=== PATIENT | male | born 1955 | race Caucasian/White ===

== ENCOUNTER 2022-08-06 04:50 | Observation (INO) ==
--- NOTE | 2022-07-08 10:27 | PAT Medication Instructions ---
Medication Instructions Date of Service July 08, 2022 Home Medications ascorbic acid (vitamin C) 500 mg tablet (Vitamin C) 500 mg PO QAM aspirin 81 mg capsule 81 mg PO QAM atorvastatin 20 mg tablet 20 mg PO HS cholecalciferol (vitamin D3) 10 mcg (400 unit) chewable tablet (Vitamin D3) 10 mcg PO QAM cyanocobalamin (vitamin B-12) 1,000 mcg tablet,extended release (Vitamin B-12 ER) 1,000 mcg PO QAM insulin aspart U-100 100 unit/mL subcutaneous solution (Novolog U-100 Insulin as part) 1 unit continuous subcutaneous infusion UD losartan 100 mg tablet 100 mg PO QAM omeprazole 40 mg capsule,delayed release 40 mg PO QAM DO NOT take the morning of surgery ascorbic acid (vitamin C) 500 mg tablet (Vitamin C) 500 mg PO QAM cholecalciferol (vitamin D3) 10 mcg (400 unit) chewable tablet (Vitamin D3) 10 mcg PO QAM cyanocobalamin (vitamin B-12) 1,000 mcg tablet,extended release (Vitamin B-12 ER) 1,000 mcg PO QAM losartan 100 mg tablet 100 mg PO QAM Take morning of surgery With a small sip of water, OTHERWISE NOTHING TO EAT OR DRINK AFTER MIDNIGHT: aspirin 81 mg capsule 81 mg PO QAM (continue as normal unless told otherwise by surgeon) omeprazole 40 mg capsule,delayed release 40 mg PO QAM Take evening before surgery atorvastatin 20 mg tablet 20 mg PO HS Insulin Dependent Diabetic Patients Unless told otherwise by prescriber, for insulin pump: set to basal rate. Do not bolus morning of surgery. Other Notes If you have any questions please call us at [phone] or [phone] or [phone] or [phone]
--- NOTE | 2022-07-11 11:04 | Anesthesiology Consultation ---
Date of Service July 11, 2022 Assessment & Plan (1) Encounter for pre-operative examination: - COVID screening: Per assessment on 07/11: No known COVID-19 positive contacts or current COVID-19 related symptoms. Travel screen negative. Patient vaccinated. Patient was Covid positive early 05/2022 (home test). Symptoms at time: cough, fatigue > resolved. Pt did not have formal testing done, therefore Covid test done at [facility] 07/11- result was negative. - Check BSG AM DOS - Outpatient joint assessment: Pt currently scheduled for inpatient pathway. If surgeon requests review for outpatient joint pathway, patient is not recommended candidate for outpatient joint program from anesthesia standpoint. - Pt scheduled to see cardiology prior to surgery. Awaiting cardiology office visit note (Dr. Elmore, appt 07/28). Chart Review Chart Review: Patient seen in Pre Admission Testing Teaching & Discussion Pre-Anesthesia Teaching/Discussion Notes: Instructed NPO after midnight before surgery,except medications with 15 cc of water. Medication instructions provided according to the [facility] guidelines. History Surgery Operation Date: 08/06/22 11:50 Proposed Procedures p Right Total Knee Arthroplasty - Ishmael Garcia MD Height/Weight Height: 5 ft 11 in Weight: 111.2 kg Allergies Allergy/AdvReac Type Severity Reaction Status Date / Time Penicillins Allergy Intermediate Rash Verified 07/07/22 08:12 Medications Home Medications Medication Instructions Recorded Confirmed Last Taken ascorbic acid (vitamin C) 500 mg 500 mg PO QAM 07/30/21 07/07/22 Unknown tablet (Vitamin C) aspirin 81 mg capsule 81 mg PO QAM 07/30/21 07/07/22 Unknown atorvastatin 20 mg tablet 20 mg PO HS 07/30/21 07/07/22 Unknown cholecalciferol (vitamin D3) 10 10 mcg PO QAM 07/30/21 07/07/22 Unknown mcg (400 unit) chewable tablet (Vitamin D3) cyanocobalamin (vitamin B-12) 1,000 mcg PO QAM 07/30/21 07/07/22 Unknown 1,000 mcg tablet,extended release (Vitamin B-12 ER) insulin aspart U-100 100 unit/mL 1 unit continuous subcutaneous 07/30/21 07/07/22 Unknown subcutaneous solution (Novolog infusion UD U-100 Insulin aspart) losartan 100 mg tablet 100 mg PO QAM 07/30/21 07/07/22 Unknown omeprazole 40 mg capsule,delayed 40 mg PO QAM 07/30/21 07/07/22 Unknown release Past Medical History Medical History Diabetes mellitus type 1 + insulin pump GERD (gastroesophageal reflux disease) History of COVID-19 Early 05/2022 (home test), symptoms at time: cough, fatigue > resolved Hx of renal calculi Passed without intervention Hyperlipidemia Hypertension Obesity Exercise / Class Metabolic Activity III < 4 Walking/Shop/Light housework (one FS (no CP, no SOB)) Past Family History Family History Other No family history of adverse response to anesthesia Past Surgical History Surgical History History of cataract surgery R/L History of cholecystectomy History of colonoscopy History of esophagogastroduodenoscopy (EGD) Hx of wisdom tooth extraction S/P arthroscopy of left shoulder x2 S/P arthroscopy of right shoulder S/P rotator cuff repair right Status post arthroscopy of right knee x2 Past Anesthesia History Other (Awareness with eye surgery) *Brother- awareness with knee surgery* History of PONV No Hx of PONV and Hx of Motion Sickness Social History Smoking Status: Never smoker Do You Dip or Chew Tobacco: No Hx Alcohol Use: Yes Alcohol type: beer alcohol intake frequency: a few times a month Hx Substance Use: No substance use type: does not use Review of Systems Patient denies chest pain, shortness of breath, fever, chills, cough, wheezing, palpitations. Physical Exam Vital Signs VITALS BP 174/82 (BP typically 120s/70s per pt) P 71 TEMP 97.9 SP02 96%RA RESP 16 PHYSICAL Full cervical extension range of motion. Full TMJ range of motion. TMD 3.5 finger breaths Mallampati Score 2 Dentition: intact, + caps/crowns Lungs: clear throughout to auscultation Cardiac: regular rate and rhythm, no murmurs noted Spine: normal Carotid arteries: negative bruit Extremities: no edema Lab Results Anesthesia Preop Results Results Anesthesia Widget: WBC 6.14 K/ul (4.8-10.8) 07/11/22 Hgb 13.7 g/dl (14.0-18.0) L 07/11/22 Hct 40.3 % (40.1-51.0) 07/11/22 Plt 135 K/uL (130-400) 07/11/22 Na 140 mmol/L (136-145) 07/11/22 K 4.2 mmol/L (3.5-5.1) 07/11/22 Cl 105 mmol/L (98-107) 07/11/22 CO2 30 mmol/L (21-32) 07/11/22 BUN 18 mg/dl (6-23) 07/11/22 Creat 1.07 mg/dl (0.6-1.4) 07/11/22 Glucose Level 209 mg/dl (70-99(Fasting)) H 07/11/22 PT 10.4 Seconds (9.0-12.0) 07/11/22 PTT 27.8 Seconds (21.0-31.0) 07/11/22 INR 1.0 (0.9-1.1) 07/11/22 HA1c 6.9 % (4.5-5.6) H 07/11/22 Urine Color Yellow 07/11/22 Urine Appearance Clear (Clear) 07/11/22 Urine pH 5.5 (4.5-7.5) 07/11/22 Urine Specific [place] 1.021 (1.000-1.030) 07/11/22 Urine Protein 1+ (Negative) H 07/11/22 Urine Glucose (UA) 1+ (Negative) H 07/11/22 Urine Ketones Negative (Negative) 07/11/22 Urine Blood Negative (Negative) 07/11/22 Urine Nitrite Negative (Negative) 07/11/22 Urine Bilirubin Negative (Negative) 07/11/22 Urine Urobilinogen Negative (Negative) 07/11/22 Urine Leukocyte Esterase Negative (Negative) 07/11/22 Urine WBC (Auto) 1-5 /hpf (0-5) 07/11/22 Urine RBC (Auto) 0-4 /hpf (0-4) 07/11/22 Urine Hyaline Casts (Auto) 0 /lpf (0-5) 07/11/22 Urine Epithelial Cells (Auto) 10-20 /lpf (0-5) H 07/11/22 Urine Bacteria (Auto) Negative (Negative) 07/11/22 Blood Type O Positive 07/11/22 Antibody Screen NEGATIVE 07/11/22 Testing Electrocardiogram Date: 07/11/22 SR with first degree AVB at 69bpm. LAD. Chest X-Ray Date: 06/12/22 Findings: + NAD Echocardiogram Date: 11/17/19 LVEF 55-60%. Grade 1 diastolic dysfunction. No significant valvular disease. COVID-19 Risk Screen Screening Information COVID-19 Screen Date: 07/11/22 Exposure 21 Days Family/Household +COVID Last 21 Days: No Exposure 10 Days Any COVID Exposure Last 10 Days: No Symptoms Last 10 Days Experienced COVID Sx Last 10 Days: No + COVID 0-90 Days COVID + in Last 0-90 Days: Yes + COVID Test 0-10 Day: No + COVID Test 11-90 Day: Yes
--- NOTE | 2022-08-05 18:16 | History & Physical Report ---
Date of Service August 05, 2022 Assessment & Plan (1) Primary osteoarthritis of right knee: Plan: Treat options discussed with patient. He has failed conservative measures. He like to proceed with surgical intervention. Risks, benefits and alternatives to surgery including but not limited to infection, DVT, pain, stiffness, need for revision surgery, damage to blood vessels, damage to nerves, PE, , were discussed with the patient and they wish to proceed. Plan for right total knee arthroplasty scheduled for [facility] August [address] Garcia. We will plan on aspirin 81 mg twice daily for 1 month postop for DVT prophylaxis. We will plan on outpatient physical therapy. All questions answered. Patient will follow-up postop. History of Present Illness Chief Complaint: Right knee pain Primary Care Provider: NO PCP 66-year-old male with past medical history significant for diabetes mellitus, hypertension, GERD who presents with ongoing right knee pain. Patient has failed conservative measures including steroid injections. Pain is interfering with his daily activities. He would like to proceed with surgical intervention. Patient denies headaches, sweats, fevers, chills, double vision, blurred vision, cough, sore throat, dysphagia, chest pain, sob, wheezing, n/v/d/c, numbness, tingling, fatigue, urinary symptoms, mood disorders. ROS positive for right knee pain and stiffness. Allergies Allergy/AdvReac Type Severity Reaction Status Date / Time Penicillins Allergy Intermediate Rash Verified 08/06/22 05:28 Home Medications Medication Instructions Recorded Confirmed Type ascorbic acid (vitamin C) 500 mg 500 mg PO QAM 07/30/21 08/06/22 History tablet (Vitamin C) aspirin 81 mg capsule 81 mg PO QAM 07/30/21 08/06/22 History atorvastatin 20 mg tablet 20 mg PO HS 07/30/21 08/06/22 History cholecalciferol (vitamin D3) 10 10 mcg PO QAM 07/30/21 08/06/22 History mcg (400 unit) chewable tablet (Vitamin D3) cyanocobalamin (vitamin B-12) 1,000 mcg PO QAM 07/30/21 08/06/22 History 1,000 mcg tablet,extended release (Vitamin B-12 ER) insulin aspart U-100 100 unit/mL 1 unit continuous subcutaneous 07/30/21 08/06/22 History subcutaneous solution (Novolog infusion UD U-100 Insulin aspart) losartan 100 mg tablet 100 mg PO QAM 07/30/21 08/06/22 History omeprazole 40 mg capsule,delayed 40 mg PO QAM 07/30/21 08/06/22 History release Past Med/Surg History Medical History Diabetes mellitus type 1 + insulin pump GERD (gastroesophageal reflux disease) History of COVID-19 Early 05/2022 (home test), symptoms at time: cough, fatigue > resolved Hx of renal calculi Passed without intervention Hyperlipidemia Hypertension Obesity Surgical History History of cataract surgery R/L History of cholecystectomy History of colonoscopy History of esophagogastroduodenoscopy (EGD) Hx of wisdom tooth extraction S/P arthroscopy of left shoulder x2 S/P arthroscopy of right shoulder S/P rotator cuff repair right Status post arthroscopy of right knee x2 Family History Other No family history of adverse response to anesthesia Social History Smoking Status: Never smoker Second Hand Exposure: No; Do You Dip or Chew Tobacco: No; Tobacco Cessation Education Requested by Patient: No Hx Alcohol Use: Yes Alcohol type: beer Hx Substance Use: No Preferred Language: Chinese Communication Ability: Effective Photo Optics Technician Required: No Beliefs That Will Affect Care: None Current Living Situation: Spouse Other Information That Helps Us Care for You: No Feels Safe at Home: Yes Safety Concerns: Feels Safe At This Time Assistive Devices: Glasses Review of Systems All systems reviewed & are unremarkable except as noted in HPI & below Physical Exam Constitutional: well developed and well nourished; no acute distress Eyes: PERRL, conjunctivae normal, anicteric sclerae ENMT: external ear and nose normal, oropharynx normal Neck: trachea midline, no thyromegaly Respiratory: normal respiratory effort, lungs clear to auscultation Cardiovascular: RRR, no murmur, no edema Musculoskeletal: Right knee: Varus alignment with mild effusion. Medial joint line tenderness. There is mild crepitation. Positive Pura's. Stable valgu s and varus stress test. Range of motion 5 to 130 degrees. Skin: no rashes, warm and dry Neurologic: patellar DTR's 2+ bilat, sensation intact Psychiatric: A+Ox3, euthymic affect Results & Data ([place]) Diagnostic Findings Right knee radiographs demonstrate end-stage osteoarthritis right knee, [id number] medial compartment. There is tricompartmental joint changes. Osteophytes in all 3 compartments.
[2022-08-06] MEDS ORDERED: CeleBREX 200 MG CAP PO SCH (06:00)
[2022-08-06] MEDS ORDERED: FAMOTIDINE 20 MG TAB PO SCH (06:00)
[2022-08-06] MEDS ORDERED: ROPIVACAINE 0.5% HCL/PF 150 MG, BUPIVACAINE 0.75% MPF 20 ML, EPINEPHrine 30MG/30ML (OR ... INFIL SCH (06:00)
[2022-08-06] MEDS ORDERED: TRANEXAMIC ACID 1,000 MG **IV Pre-op IV SCH (06:00)
[2022-08-06] MEDS ORDERED: GABAPENTIN 300 MG CAP PO SCH (06:00)
[2022-08-06] MEDS ORDERED: METOCLOPRAMIDE HCL 10 MG TABLET PO SCH (06:00)
[2022-08-06] MEDS ORDERED: LR 500ML BOLUS, THEN 15ML/HR IV SCH (06:00)
[2022-08-06] MEDS ORDERED: VANCOMYCIN HCL 1,750 MG in SODIUM CHLORIDE 0.9% 500 ML IV SCH ×2 (06:00→18:00)
[2022-08-06] MEDS ORDERED: TRANEXAMIC ACID 1,000 MG **IV Intra-op IV SCH (06:00)
[2022-08-06] MEDS ORDERED: ACETAMINOPHEN 500 MG TAB PO SCH (06:00)
[2022-08-06] MEDS ORDERED: ROPIVACAINE 0.5% 5 MG/ML 30 ML VIAL ONE (06:31)
[2022-08-06] MEDS ORDERED: BUPIVACAINE 0.5 % 5 MG/1 ML PF 10ML VIAL ONE (06:31)
[2022-08-06] MEDS ORDERED: MIDAZOLAM HCL 1 MG/ML 2ML VIAL ONE (06:40)
[2022-08-06] MEDS ORDERED: ORTHO JOINT ANESTHETIC ONE (06:48)
[2022-08-06] MEDS ORDERED: ePHEDrine sulfate 50 MG/ML AMP IV PRN (06:54)
[2022-08-06] MEDS ORDERED: PROMETHAZINE HCL 12.5 MG in SODIUM CHLORIDE 0.9% 50 ML IV PRN (06:54)
[2022-08-06] MEDS ORDERED: fentaNYL citrate 100 MCG/2 ML VIAL IV PRN (06:54)
[2022-08-06] MEDS ORDERED: ATROPINE SULFATE 0.1 MG/ML 10ML SYR IV PRN (06:54)
[2022-08-06] MEDS ORDERED: ONDANSETRON INJ 2 MG/ML 2 ML VIAL IV PRN (06:54)
[2022-08-06] MEDS ORDERED: HYDROmorphone INJ 2 MG/ML SYR/VIAL IV PRN (06:54)
--- NOTE | 2022-08-06 07:14 | History & Physical Bridge Note ---
Date of Service August 06, 2022 History & Physical Bridge Note I have examined the patient, reviewed the History & Physical and in the interval since the performance of the History & Physical I have noted the following changes of clinical significance: no changes noted
[2022-08-06] MEDS ORDERED: PROPOFOL IV EMULSION 10 MG/ML 20 ML VIAL IV ONE (07:54)
[2022-08-06] MEDS ORDERED: ONDANSETRON INJ 2 MG/ML 2 ML VIAL ONE (07:54)
[2022-08-06] MEDS ORDERED: PHENYLEPHRINE 100MCG/ML 5ML SYR ONE (07:54)
[2022-08-06] MEDS ORDERED: LIDOCAINE 2% MPF LOCAL 5 ML VIAL INFIL ONE (07:54)
--- NOTE | 2022-08-06 09:45 | Post Operative Brief Note ---
Immediate Post Op Note v1 Date of Surgery August 06, 2022 Pre & Post Diagnosis Operation Date: 08/06/22 07:00 Pre-Op Diagnosis: Osteoarthritis Right Knee Post-Op Diagnosis: Osteoarthritis Right Knee, chronic ACL tear medial meniscus tear I identified the patient and participated in the time-out.: Yes Procedure Operation Date: 08/06/22 07:00 Actual Procedures p Right Total Knee Arthroplasty Cemented(Right), christophe and Acticoat superficial wound VAC- Ishmael Garcia MD Surgeon Ishmael Garcia MD Culinary Manager Rio MCNEIL Estimated Blood Loss 5 Findings Consistent with Post-Op Diagnosis Specimens Bone cuts Drains Hemovac Drain Anesthesia Type MAC Spinal Regional Disposition Accompanied Patient To Recovery: No Disposition: Recovery Room Overlapping Procedure I was immediately available: during the entire case.
--- NOTE | 2022-08-06 09:59 | Operative Report ---
Post Operative Report Pre & Post Diagnosis Operation Date: 08/06/22 07:00 Pre-Op Diagnosis: Osteoarthritis Right Knee Post-Op Diagnosis: Osteoarthritis Right Knee, chronic ACL tear, medial meniscus tear I identified the patient and participated in the time-out.: Yes Procedure Operation Date: 08/06/22 07:00 Actual Procedures p Right Total Knee Arthroplasty Cemented(Right), application christophe and Acticoat superficial wound VAC- Ishmael Garcia MD Surgeon Ishmael Garcia MD Leather Dresser Rio MCNEIL Estimated Blood Loss 5 Findings Consistent with Post-Op Diagnosis Specimens Bone cuts Drains 2 Hemovac Anesthesia Type MAC Spinal Regional Complications none Disposition Disposition: Recovery Room Indications 66-year-old male with chronic progressive right knee pain failed conservative management. Radiographs demonstrate that he has varus knee with [id number] medial compartment and lateral patellar tilt and some patellofemoral malalignment on skyline patella view. Description of Procedure Patient was taken to the operating room placed supine on the operating table and anesthetized under spinal MAC regional block anesthesia. Exam under anesthesia demonstrated varus knee 0 through 135 degrees range of motion no pseudolaxity positive Lilia exam. A pneumatic tourniquet was placed about the thigh of the right lower extremity. The right lower extremity was prepped and draped in usual sterile fashion. The leg was elevated exsanguinated with an Esmarch bandage and the pneumatic tourniquet was raised to 325 mm mercury. An anterior incision was made across the right knee. The skin was incised longitudinally subcutaneous flaps were elevated and an incision was made through the medial retinaculum extending up into the mid third of the quadriceps tendon and extended down to the medial tibial tubercle. Intra-articular findings demonstrated end-stage osteoarthritis medial compartment with mild osteoarthriti s patellofemoral joint. Varus knee [id number] medial compartment eburnated bone with a chronic ACL tear and chronic medial meniscus tear. The knee was exposed by excising the infrapatellar fat pad, excising the meniscal remnants. Any inflamed synovial tissue was resected. The fat pad over the anterior femur was resected for placement of the component in that area. The lateral synovial bands were release. The femur was exposed. Intramedullary drill hole was placed into the femoral canal and the distal femoral cutting guide was adjusted to resect a 5 degree valgus cut with a standard cut. The distal femoral cutting block was applied. The distal femoral cut was made with the oscillating saw. Sizing guide was placed and drill holes were made in 3 degrees of external rotation to match epicondylar axis. Size 11 was appropriate. The size 11, 4-in-1 cutting block was placed. The anterior and posterior chamfer cuts were made. The knee was extended and a subperiosteal peel lateral release was performed around the patella. The patella width was measured and width was reproduced using freehand cut technique. The 32 millimeter symmetrical patella was used. 3 drill holes are made for the pegs. Lateral facet was beveled off prevent any bone impingement. The tibia was exposed. An external tibial cutting guide was positioned and pinned in position. Perpendicular cut the long axis of the tibia was made matching the slope. the proximal cut was made with the oscillating saw. All osteophytes were resected. The lamina spreader operator was used to assess ligamentous balance and the ligaments were balanced in extension and flexion. This required a medial posterior medial release pie crusting MCL to get balanced gaps. The tibia was reexposed and measured for a size G tibial component. This was externally rotated in line with the tibial tubercle and the fixation pins were drilled. The proximal tibia was fashioned with the drill and punch. The size 11 CR right femoral trial was inserted. The trial MC inserts were used. The 12 mm insert gave balanced ligaments through full range of motion. The patella tracked centrally. the trials were removed. The orthomix anesthetic cocktail was injected per protocol. The knee was then copiously irrigated with pulsatile lavage saline solution. The final components were cemented with Refobacin bone cement. The final components were [employer] persona right 11 standard CR femoral component, right G tibial component, 12 MC tibial polyethylene, 32 symmetrical patella. After the cement cured with the knee in full extension the Betadine soak was used per protocol. The knee joint was copiously irrigated with pulsatile lavage saline solution . 2 drains were brought out laterally and connected to a Hemovac. The quadriceps tendon and medial retinaculum were closed with interrupted [id number] #1 Vicryl sutures. The knee was taken through a full range of motion and repair was secure. The subcutaneous tissues were closed with 2-0 Vicryl sutures and skin was closed with timmy. A christophe and Acticoat superficial wound VAC was applied and the patient tolerated the procedure well. Rio MCNEIL my physician fiscal assistant participated as assistant gm of content & delivery and was integral part in all aspects of the procedure, he assisted in soft tissue retraction, instrument management ,leg positioning, the closure application superficial wound VAC and will participate in the postoperative care of the patient. I attest to the content of the Intraoperative Record and any orders documented therein. Any exceptions are noted below.
--- NOTE | 2022-08-06 10:30 | XRay Report ---
RIGHT KNEE 2 VIEWS History: Right total knee arthroplasty. Degenerative arthritis. Postop. FINDINGS: The patient is status post a right total knee arthroplasty. The hardware is intact. No frac ture or dislocation. Skin timmy and surgical drains are in place. IMPRESSION: Right total knee arthroplasty. No evidence for hardware complication. ACT 112: Negative or not required by law. Electronically signed by: William Villarreal M.D. 08/06/2022 10:28 AM
[2022-08-06] MEDS ORDERED: PHARMACY GLYCEMIC MGMT CONSULT PRN (10:55)
[2022-08-06] MEDS ORDERED: VANCOMYCIN CONSULT ACTIVE PRN (10:55)
[2022-08-06] MEDS ORDERED: bisacodyL 10 MG SUPP PR PRN (10:55)
[2022-08-06] MEDS: SODIUM CHLORIDE 0.9% 1000ML 1,000 ML IV SCH ×2 (10:55→22:06)
[2022-08-06] MEDS ORDERED: METOCLOPRAMIDE HCL INJ 5 MG/ML 2 ML VIAL IV PRN (10:55)
[2022-08-06] MEDS ORDERED: NALOXONE HCL 0.4 MG/1 ML VIAL/CARP IV PRN (10:55)
[2022-08-06] MEDS ORDERED: MAGNESIUM HYDROXIDE SUSP 30 ML UDC PO PRN (10:55)
[2022-08-06] MEDS ORDERED: HYDROmorphone INJ 0.5 MG/0.5 ML SYR IV PRN (10:55)
--- NOTE | 2022-08-06 11:10 | Anesthesiology Progress Note ---
Date of Service August 06, 2022 Anesthesia Post Procedure Vital Signs Vital Signs: Temp Pulse Pulse Resp BP BP Pulse Ox 08/06/22 10:55 36.3 C L 61 14 130/73 97 08/06/22 10:45 36.4 C L 60 15 127/65 97 08/06/22 10:35 62 15 124/65 96 08/06/22 10:25 60 19 129/72 95 08/06/22 10:05 62 15 133/72 95 08/06/22 10:15 58 L 16 133/72 94 08/06/22 09:55 68 16 115/71 98 08/06/22 09:48 36.0 C L 71 15 131/88 96 08/06/22 05:31 36.6 C 73 20 171/87 H 95 O2 Del Method O2 Flow Rate 08/06/22 10:55 Room Air 08/06/22 10:45 Room Air 08/06/22 10:35 Room Air 08/06/22 10:25 Room Air 08/06/22 10:05 Room Air 08/06/22 10:15 Room Air 08/06/22 09:55 Room Air 08/06/22 09:48 Oxymask 4 08/06/22 05:31 Room Air Transfer of Care Handoff Completed per policy Notes Mental Status: alert / awake / arousable and participated in evaluation Nausea / Vomiting: adequately controlled Pain: adequately controlled Airway Patency, RR, SpO2: stable & adequate BP & HR: stable & adequate Hydration State: stable & adequate Neuraxial Anesthesia: was administered and sensory block is resolving Anesthetic Complications: no major complications apparent and Pt Satisfied with anesthetic care
--- NOTE | 2022-08-06 11:28 | Hospitalist Consultation ---
Date of Consultation August 06, 2022 Assessment & Plan (1) Primary osteoarthritis of right knee: Patient had right total right knee arthroplasty 08/06/2022 Dr. Cartagena (2) Diabetes mellitus type 1: Hopefully will have the patient manage his own pump. If his glucoses become out of control we may enlist glycemic management and stop his pump. (3) Hypertension: If blood pressures allows will hold his losartan on postoperative day 1 which is 1124 and resumed 1125. If need be hydralazine backup will be offered for blood pressure control (4) Hyperlipidemia: Patient is maintained on atorvastatin Plan Surgery is decided on aspirin 81 twice daily for DVT prevention postoperatively History of Present Illness Attending Physician: Ishmael Garcia MD History of Present Illness Patient is a type I diabetic male who underwent right total knee arthroplasty on 08/06/[address] Garcia. Patient is currently uses insulin pump postoperatively. He has very few other medical problems but will continue his Lipitor and losartan and omeprazole. Patient was accompanied by family when I visited him postoperatively he was sleeping but awoke was alert and oriented and appropriate he still has anesthesia to his right lower leg. His family states he is very comfortable managing his insulin pump and so does the patient Allergies Allergy/AdvReac Type Severity Reaction Status Date / Time Penicillins Allergy Intermediate Rash Verified 08/06/22 05:28 Home Medications Medication Instructions Recorded Confirmed Type ascorbic acid (vitamin C) 500 mg 500 mg PO QAM 07/30/21 08/06/22 History tablet (Vitamin C) aspirin 81 mg capsule 81 mg PO QAM 07/30/21 08/06/22 History atorvastatin 20 mg tablet 20 mg PO HS 07/30/21 08/06/22 History cholecalciferol (vitamin D3) 10 10 mcg PO QAM 07/30/21 08/06/22 History mcg (400 unit) chewable tablet (Vitamin D3) cyanocobalamin (vitamin B-12) 1,000 mcg PO QAM 07/30/21 08/06/22 History 1,000 mcg tablet,extended release (Vitamin B-12 ER) insulin aspart U-100 100 unit/mL 1 unit continuous subcutaneous 07/30/21 08/06/22 History subcutaneous solution (Novolog infusion UD U-100 Insulin aspart) losartan 100 mg tablet 100 mg PO QAM 11/16/21 11/23/22 History omeprazole 40 mg capsule,delayed 40 mg PO QAM 07/30/21 08/06/22 History release Patient History Medical History (Updated 08/06/22 @ 11:26 by Maxim Dsouza MD) Diabetes mellitus type 1 + insulin pump GERD (gastroesophageal reflux disease) History of COVID-19 Early 05/2022 (home test), symptoms at time: cough, fatigue > resolved Hx of renal calculi Passed without intervention Hyperlipidemia Hypertension Obesity Surgical History History of cataract surgery R/L History of cholecystectomy History of colonoscopy History of esophagogastroduodenoscopy (EGD) Hx of wisdom tooth extraction S/P arthroscopy of left shoulder x2 S/P arthroscopy of right shoulder S/P rotator cuff repair right Status post arthroscopy of right knee x2 Family History Other No family history of adverse response to anesthesia Social History Smoking Status: Never smoker Second Hand Exposure: No; Do You Dip or Chew Tobacco: No; Tobacco Cessation Education Requested by Patient: No Hx Alcohol Use: Yes Alcohol type: beer Hx Substance Use: No Preferred Language: Ukrainian Communication Ability: Effective Construction Technician Required: No Beliefs That Will Affect Care: None Current Living Situation: Spouse Other Information That Helps Us Care for You: No Feels Safe at Home: Yes Safety Concerns: Feels Safe At This Time Assistive Devices: Glasses Review of Systems Review of Systems: Mild distress and fatigue no headache, no visual changes no speech or swallowing issues no chest pain, pressure or palpitations no shortness of breath, cough or wheezes no abdominal pain, nausea or vomiting, diarrhea or constipation no dysuria, hematuria or frequency Postoperative right knee is still under the spinal anesthesia block has dressing in place no back pain, CVA tenderness or radicular pain no bruising, bleeding or rashes no focal signs of weakness or numbness or altered sensation no complaints of anxiety or depression.. Physical Exam Physical Exam: The patient appeared well nourished and normally developed. Vital signs as documented. Head exam is normocephalic atraumatic Neck is without JVD, thyromegaly, or carotid bruits. Lungs are clear to auscultation, no focal loss of breath sounds Cardiac exam, Rhythm is regular.. No murmurs, rubs or gallops. Abdominal exam reveals normal bowel sounds, soft non tender, no masses Right knee is still with anesthesia, dressing in place, Hemovac in place Neurologic exam is alert and oriented, no focal loss of strength or sensation Skin is without bruises or rashes Psychologically is without concerns for anxiety or depression.. Results & Data Results & Data ([facility]) Vital Signs (Past 12 Hours) Vital Signs Temp Pulse Pulse Resp BP BP Pulse Ox 08/06/22 10:55 97.3 F L 61 14 130/73 97 08/06/22 10:45 97.5 F L 60 15 127/65 97 08/06/22 10:35 62 15 124/65 96 08/06/22 10:25 60 19 129/72 95 08/06/22 10:05 62 15 133/72 95 08/06/22 10:15 58 L 16 133/72 94 08/06/22 09:55 68 16 115/71 98 08/06/22 09:48 96.8 F L 71 15 131/88 96 08/06/22 05:31 97.9 F 73 20 171/87 H 95 O2 Del Method O2 Flow Rate 08/06/22 10:55 Room Air 08/06/22 10:45 Room Air 08/06/22 10:35 Room Air 08/06/22 10:25 Room Air 08/06/22 10:05 Room Air 08/06/22 10:15 Room Air 08/06/22 09:55 Room Air 08/06/22 09:48 Oxymask 4 08/06/22 05:31 Room Air PG Care Time/CCT Total # of Minutes Spent Total Time Spent with Patient: Total time spent is greater than 50% in coordination of care (as documented) at patient's floor/unit and/or counseling patient: Coding Level of Care Code 14626 Inpt Consult Level 3 Diagnoses Primary osteoarthritis of right knee M17.11 Diabetes mellitus type 1 E10.9 Hypertension I10 Hyperlipidemia E78.5
[2022-08-06] MEDS ORDERED: hydrALAZINE HCL 20 MG/ML VIAL IV PRN (11:29)
[2022-08-06] MEDS: ACETAMINOPHEN 500 MG TAB PO SCH ×2 (13:19→22:05)
[2022-08-06] MEDS: oxyCODONE HCL IR 5 MG TAB (IMMEDIATE RELEASE) PO PRN (15:39)
[2022-08-06] MEDS ORDERED: VANCOMYCIN HCL 1,750 MG in SODIUM CHLORIDE 0.9% 250 ML IV SCH (18:00)
[2022-08-06] MEDS: ONDANSETRON INJ 2 MG/ML 2 ML VIAL IV PRN (18:18)
[2022-08-06] MEDS: SENNA 8.6 MG TAB PO SCH (20:49)
[2022-08-06] MEDS: ATORVASTATIN 20 MG TAB PO SCH (20:49)
[2022-08-06] MEDS: CeleBREX 200 MG CAP PO SCH (20:50)
[2022-08-06] MEDS: ASPIRIN 81 MG ECTAB PO SCH (20:50)
[2022-08-06] MEDS: DOCUSATE SODIUM 100 MG CAP PO SCH (20:50)
[2022-08-07] MEDS: oxyCODONE HCL IR 5 MG TAB (IMMEDIATE RELEASE) PO PRN ×4 (02:40→23:52)
[2022-08-07] MEDS: ACETAMINOPHEN 500 MG TAB PO SCH ×3 (05:41→21:12)
[2022-08-07] MEDS: ONDANSETRON INJ 2 MG/ML 2 ML VIAL IV PRN ×2 (06:14→22:22)
[2022-08-07 06:46] LABS: Hematocrit (blood only) 38.2 % (40.1-51.0); Hemoglobin 12.7 g/dl (14.0-18.0); Mean Corpuscular Hemoglobin 29.1 pg (25.0-34.0); Mean Corpuscular Hgb Conc 33.2 g/dL (32.0-36.0); Mean Corpuscular Volume 87.4 fL (80.0-100.0); Mean Platelet Volume 12.8 fL (9.4-12.4); Platelet Count 130 K/uL (130-400); RDW Coefficient of Variation 12.4 % (11.5-14.5); RDW Standard Deviation 39.6 fL (36.4-46.3); Red Blood Count 4.37 M/uL (4.63-6.08); White Blood Count 7.76 K/ul (4.8-10.8)
[2022-08-07 07:06] LABS: BUN Creatinine Ratio 21.4 (10-20); Calcium 8.4 mg/dl (8.5-10.1); Creatinine Clr Calc Pharmacy 80.6 ml/min; Est GFR (African American) 77.8 ml/min; Est GFR (Non-African American) 67.1 ml/min; Potassium 3.9 mmol/L (3.5-5.1)
--- NOTE | 2022-08-07 08:34 | Communication Note ---
Date of Service: August 07, 2022 Chart rounded on patient. Patient appears medically stable. Will sign off case. Please tiger Dr. Zafar (immigration paralegal 08/07-08/09) for any further questions.
[2022-08-07] MEDS: CHOLECALCIFEROL 400 UNITS 10 MCG TAB PO SCH (08:35)
[2022-08-07] MEDS: ASCORBIC ACID 500 MG TAB PO SCH (08:35)
[2022-08-07] MEDS: CYANOCOBALAMIN (B-12) 500 MCG TABLET PO SCH (08:35)
[2022-08-07] MEDS: MULTIVITAMIN TAB PO SCH (08:35)
[2022-08-07] MEDS: CeleBREX 200 MG CAP PO SCH (08:37)
[2022-08-07] MEDS: DOCUSATE SODIUM 100 MG CAP PO SCH ×2 (08:37→21:11)
[2022-08-07] MEDS: PANTOprazole 40 MG TAB PO SCH (08:37)
[2022-08-07] MEDS: ASPIRIN 81 MG ECTAB PO SCH ×2 (08:37→21:11)
--- NOTE | 2022-08-07 08:39 | Orthopedic Progress Note ---
Date of Service August 07, 2022 Assessment & Plan (1) Primary osteoarthritis of right knee: Plan: POD 1 s/p right TKA PT/OT protocols. WBAT. DVT prophylaxis - ASA bid, SCD's, CARMENCITA's Pain management - Consider stopping Celebrex and trying Toradol low dose q6h for 24 hours. DC planning - services upon DC. Pain control not adequate at this time. Plus LH with ambulation. Will see how PT/OT goes but likely will need to stay one more day for pain control issues. Admission and Anticipated Discharge Date Admission Date: August 06, 2022 Subjective POD 1 Pt sitting up eating breakfast. States he has had increased pain since last night at some point with blocks wearing off. Some nausea with medications taken. Mild LH when getting up to BR. Urinating well. Physical Exam Physical Exam: Dressings C/D/I. Calves soft,NT. NV intact. Toes mobile. Good DF/PF of right foot. Hemovac drainage minimal at this time. Results & Data ([facility]) Vital Signs (Past 12 Hours) Vital Signs Temp Pulse Pulse Resp BP Pulse Ox O2 Del Method 08/07/22 08:00 36.7 C 74 16 150/69 H 96 Room Air 08/07/22 02:36 36.6 C 66 16 133/66 96 Room Air 08/06/22 22:22 36.7 C 68 18 162/78 H 97 Room Air Laboratory Results Laboratory Results WBC 7.76 K/ul (4.8-10.8) 08/07/22 06:14 RBC 4.37 M/uL (4.63-6.08) L 08/07/22 06:14 Hgb 12.7 g/dl (14.0-18.0) L 08/07/22 06:14 Hct 38.2 % (40.1-51.0) L 08/07/22 06:14 MCV 87.4 fL (80.0-100.0) 08/07/22 06:14 MCH 29.1 pg (25.0-34.0) 08/07/22 06:14 MCHC 33.2 g/dL (32.0-36.0) 08/07/22 06:14 RDW Std Deviation 39.6 fL (36.4-46.3) 08/07/22 06:14 RDW Coeff of Ileana 12.4 % (11.5-14.5) 08/07/22 06:14 Plt Count 130 K/uL (130-400) 08/07/22 06:14 MPV 12.8 fL (9.4-12.4) H 08/07/22 06:14 Sodium 140 mmol/L (136-145) 08/07/22 06:14 Potassium 3.9 mmol/L (3.5-5.1) 08/07/22 06:14 Chloride 108 mmol/L (98-107) H 08/07/22 06:14 Carbon Dioxide 29 mmol/L (21-32) 08/07/22 06:14 Anion Gap 3 (3-11) 08/07/22 06:14 BUN 24 mg/dl (6-23) H 08/07/22 06:14 Creatinine 1.12 mg/dl (0.6-1.4) 08/07/22 06:14 Est Cr Clr Drug Dosing 80.6 ml/min 08/07/22 06:14 Est GFR ( Amer) 77.8 ml/min 08/07/22 06:14 Est GFR (Non-Af Amer) 67.1 ml/min 08/07/22 06:14 BUN/Creatinine Ratio 21.4 (10-20) H 08/07/22 06:14 Glucose 101 mg/dl (70-99(Fasting)) H 08/07/22 06:14 POC Glucose 106 mg/dl (70-99) H 08/07/22 08:00 Calcium 8.4 mg/dl (8.5-10.1) L 08/07/22 06:14 SARS-CoV-2, RNA, NAAT NEGATIVE (NEGATIVE) 08/06/22 05:22 Impressions Knee X-Ray 08/06/22 09:51 RIGHT KNEE 2 VIEWS History: Right total knee arthroplasty. Degenerative arthritis. Postop. FINDINGS: The patient is status post a right total knee arthroplasty. The hardware is intact. No fracture or dislocation. Skin timmy and surgical drains are in place. IMPRESSION: Right total knee arthroplasty. No evidence for hardware complication. ACT 112: Negative or not required by law. Electronically signed by: William Villarreal M.D. 08/06/2022 10:28 AM
[2022-08-07] MEDS ORDERED: LOSARTAN POTASSIUM 50 MG TAB PO SCH (09:00)
[2022-08-07] MEDS: KETOROLAC TROMETHAMINE 15 MG/ML VIAL IV SCH ×3 (10:39→21:11)
[2022-08-07] MEDS ORDERED: LOSARTAN POTASSIUM 50 MG TAB PO ONE (17:38)
[2022-08-07] MEDS: SENNA 8.6 MG TAB PO SCH (21:11)
[2022-08-07] MEDS: ATORVASTATIN 20 MG TAB PO SCH (21:11)
[2022-08-08] MEDS ORDERED: MELATONIN 3 MG TAB PO PRN (02:29)
[2022-08-08] MEDS: KETOROLAC TROMETHAMINE 15 MG/ML VIAL IV SCH (03:47)
[2022-08-08] MEDS: ONDANSETRON INJ 2 MG/ML 2 ML VIAL IV PRN ×2 (05:54→13:13)
[2022-08-08 06:03] LABS: Hematocrit (blood only) 33.9 % (40.1-51.0); Hemoglobin 11.4 g/dl (14.0-18.0); Mean Corpuscular Hemoglobin 29.2 pg (25.0-34.0); Mean Corpuscular Hgb Conc 33.6 g/dL (32.0-36.0); Mean Corpuscular Volume 86.9 fL (80.0-100.0); Mean Platelet Volume 12.5 fL (9.4-12.4); Platelet Count 131 K/uL (130-400); RDW Coefficient of Variation 12.5 % (11.5-14.5); RDW Standard Deviation 39.7 fL (36.4-46.3); White Blood Count 8.69 K/ul (4.8-10.8)
[2022-08-08 06:26] LABS: BUN Creatinine Ratio 17.4 (10-20); Calcium 8.3 mg/dl (8.5-10.1); Creatinine Clr Calc Pharmacy 62.7 ml/min; Est GFR (African American) 57.4 ml/min; Est GFR (Non-African American) 49.5 ml/min; Potassium 4.1 mmol/L (3.5-5.1)
[2022-08-08] MEDS: ACETAMINOPHEN 500 MG TAB PO SCH ×2 (08:11→13:13)
--- NOTE | 2022-08-08 08:17 | Orthopedic Progress Note ---
Date of Service August 08, 2022 Assessment & Plan (1) Primary osteoarthritis of right knee: Plan: POD 2 s/p right TKA PT/OT protocols. WBAT. DVT prophylaxis - ASA bid, SCD's, CARMENCITA's Pain management - Toradol dc'd with mild increase in Creatinine. Pt states he gets nauseated easily with narcotics. Discussed that most narcotics can cause nausea. After further discussion, he decided not to change what he is on and continue his regimen. Plan to send home with Zully initially. DC planning - services upon DC. Plan for dc to home today. Admission and Anticipated Discharge Date Admission Date: August 06, 2022 Subjective POD 2 Pt sleeping upon arrival to room. Easily awoken. Pt able to get OOB on his own to use the BR. Demonstrates ability to get back into bed without much in the way of assistance. States his pain control is a little better today compared to yesterday. Nausea overnight but no emesis. Difficulty sleeping. Hoping to go home today. Pt was feeling chilled when he came back from . Temps have been normal. Mild increase in Creatinine to 1.44 Physical Exam Physical Exam: DUNIA Dressing C/D/I. Calves soft, NT. Knee swollen consistent with surgery. Mild bruising. NV intact. Results & Data ([facility]) Vital Signs (Past 12 Hours) Vital Signs Temp Pulse Resp BP Pulse Ox O2 Del Method 08/07/22 23:50 37.0 C 86 16 144/73 H 93 Room Air Laboratory Results 08/08/22 08/08/22 08/07/22 Range/Units 05:48 05:48 20:48 WBC 8.69 (4.8-10.8) K/ul RBC 3.90 L (4.63-6.08) M/uL Hgb 11.4 L (14.0-18.0) g/dl Hct 33.9 L (40.1-51.0) % MCV 86.9 (80.0-100.0) fL MCH 29.2 (25.0-34.0) pg MCHC 33.6 (32.0-36.0) g/dL RDW Std Deviation 39.7 (36.4-46.3) fL RDW Coeff of Ileana 12.5 (11.5-14.5) % Plt Count 131 (130-400) K/uL MPV 12.5 H (9.4-12.4) fL Sodium 138 (136-145) mmol/L Potassium 4.1 (3.5-5.1) mmol/L Chloride 107 (98-107) mmol/L Carbon Dioxide 28 (21-32) mmol/L Anion Gap 3 (3-11) BUN 25 H (6-23) mg/dl Creatinine 1.44 H D (0.6-1.4) mg/dl Est Cr Clr Drug Dosing 62.7 ml/min Est GFR ( Amer) 57.4 ml/min Est GFR (Non-Af Amer) 49.5 ml/min BUN/Creatinine Ratio 17.4 (10-20) Glucose 115 H (70-99(Fasting)) mg/dl POC Glucose 119 H (70-99) mg/dl Calcium 8.3 L (8.5-10.1) mg/dl 08/07/22 08/07/22 Range/Units 17:11 12:16 WBC (4.8-10.8) K/ul RBC (4.63-6.08) M/uL Hgb (14.0-18.0) g/dl Hct (40.1-51.0) % MCV (80.0-100.0) fL MCH (25.0-34.0) pg MCHC (32.0-36.0) g/dL RDW Std Deviation (36.4-46.3) fL RDW Coeff of Ileana (11.5-14.5) % Plt Count (130-400) K/uL MPV (9.4-12.4) fL Sodium (136-145) mmol/L Potassium (3.5-5.1) mmol/L Chloride (98-107) mmol/L Carbon Dioxide (21-32) mmol/L Anion Gap (3-11) BUN (6-23) mg/dl Creatinine (0.6-1.4) mg/dl Est Cr Clr Drug Dosing ml/min Est GFR ( Amer) ml/min Est GFR (Non-Af Amer) ml/min BUN/Creatinine Ratio (10-20) Glucose (70-99(Fasting)) mg/dl POC Glucose 126 H 130 H (70-99) mg/dl Calcium (8.5-10.1) mg/dl
[2022-08-08] MEDS ORDERED: LOSARTAN POTASSIUM 50 MG TAB PO SCH (09:00)
[2022-08-08] MEDS: oxyCODONE HCL IR 5 MG TAB (IMMEDIATE RELEASE) PO PRN ×2 (10:08→14:06)
[2022-08-08] MEDS: ASPIRIN 81 MG ECTAB PO SCH (10:09)
[2022-08-08] MEDS: DOCUSATE SODIUM 100 MG CAP PO SCH (10:11)
[2022-08-08] MEDS: PANTOprazole 40 MG TAB PO SCH (10:11)
[2022-08-08] MEDS: MULTIVITAMIN TAB PO SCH (10:13)
[2022-08-08] MEDS: CHOLECALCIFEROL 400 UNITS 10 MCG TAB PO SCH (10:14)
[2022-08-08] MEDS: CYANOCOBALAMIN (B-12) 500 MCG TABLET PO SCH (10:14)
[2022-08-08] MEDS: ASCORBIC ACID 500 MG TAB PO SCH (10:14)
--- NOTE | 2022-08-11 16:49 | Discharge Summary ---
Date of Service August 11, 2022 Admission HPI Per Admitting Provider 66-year-old male with past medical history significant for diabetes mellitus, hypertension, GERD who presents with ongoing right knee pain. Patient has failed conservative measures including steroid injections. Pain is interfering with his daily activities. He would like to proceed with surgical intervention. Patient denies headaches, sweats, fevers, chills, double vision, blurred vision, cough, sore throat, dysphagia, chest pain, sob, wheezing, n/v/d/c, numbness, tingling, fatigue, urinary symptoms, mood disorders. ROS positive for right knee pain and stiffness. Admission Exam Per Admitting Provider Constitutional: well developed and well nourished; no acute distress Eyes: PERRL, conjunctivae normal, anicteric sclerae ENMT: external ear and nose normal, oropharynx normal Neck: trachea midline, no thyromegaly Respiratory: normal respiratory effort, lungs clear to auscultation Cardiovascular: RRR, no murmur, no edema Musculoskeletal: Right knee: Varus alignment with mild effusion. Medial joint line tenderness. There is mild crepitation. Positive Pura's. Stable valgus and varus stress test. Range of motion 5 to 130 degrees. Skin: no rashes, warm and dry Neurologic: patellar DTR's 2+ bilat, sensation intact Psychiatric: A+Ox3, euthymic affect Principal Diagnosis Right knee osteoarthritis Discharge Exam DUNIA Dressing C/D/I. Calves soft, NT. Knee swollen consistent with surgery. Mild bruising. NV intact Constitutional well developed and well nourished; no acute distress Discharge Data Allergies Allergy/AdvReac Type Severity Reaction Status Date / Time Penicillins Allergy Intermediate Rash Verified 08/06/22 05:28 Consultations 08/01/22 15:51 Consult Hospitalist Routine Procedures Performed Operation Date: 08/06/22 07:00 Actual Procedures p Right Total Knee Arthroplasty Cemented(Right) - Ishmael Garcia MD Ordered Studies 08/06/22 05:00 US - OR guided needle placemen Routine Hospital Course (1) Primary osteoarthritis of right knee: POD 2 s/p right TKA PT/OT protocols. WBAT. DVT prophylaxis - ASA bid, SCD's, CARMENCITA's Pain management - Toradol dc'd with mild increase in Creatinine. Pt states he gets nauseated easily with narcotics. Discussed that most narcotics can cause nausea. After further discussion, he decided not to change what he is on and continue his regimen. Plan to send home with [facility] initially. DC planning - HH services upon DC. Plan for dc to home today. POD 1 s/p right TKA PT/OT protocols. WBAT. DVT prophylaxis - ASA bid, SCD's, CARMENCITA's Pain management - Consider stopping Celebrex and trying Toradol low dose q6h for 24 hours. DC planning - HH services upon DC. Pain control not adequate at this time. Plus LH with ambulation. Will see how PT/OT goes but likely will need to stay one more day for pain control issues. Lab Results 08/06/22 08/06/22 08/06/22 Range/Units 05:21 05:22 09:52 WBC (4.8-10.8) K/ul RBC (4.63-6.08) M/uL Hgb (14.0-18.0) g/dl Hct (40.1-51.0) % MCV (80.0-100.0) fL MCH (25.0-34.0) pg MCHC (32.0-36.0) g/dL RDW Std Deviation (36.4-46.3) fL RDW Coeff of Ileana (11.5-14.5) % Plt Count (130-400) K/uL MPV (9.4-12.4) fL Sodium (136-145) mmol/L Potassium (3.5-5.1) mmol/L Chloride (98-107) mmol/L Carbon Dioxide (21-32) mmol/L Anion Gap (3-11) BUN (6-23) mg/dl Creatinine (0.6-1.4) mg/dl Est Cr Clr Drug Dosing ml/min Est GFR ( Amer) ml/min Est GFR (Non-Af Amer) ml/min BUN/Creatinine Ratio (10-20) Glucose (70-99(Fasting)) mg/dl POC Glucose 98 65 L* (70-99) mg/dl Calcium (8.5-10.1) mg/dl SARS-CoV-2, RNA, NAAT NEGATIVE (NEGATIVE) 08/06/22 08/06/22 08/06/22 Range/Units 10:10 12:11 17:26 WBC (4.8-10.8) K/ul RBC (4.63-6.08) M/uL Hgb (14.0-18.0) g/dl Hct (40.1-51.0) % MCV (80.0-100.0) fL MCH (25.0-34.0) pg MCHC (32.0-36.0) g/dL RDW Std Deviation (36.4-46.3) fL RDW Coeff of Ileana (11.5-14.5) % Plt Count (130-400) K/uL MPV (9.4-12.4) fL Sodium (136-145) mmol/L Potassium (3.5-5.1) mmol/L Chloride (98-107) mmol/L Carbon Dioxide (21-32) mmol/L Anion Gap (3-11) BUN (6-23) mg/dl Creatinine (0.6-1.4) mg/dl Est Cr Clr Drug Dosing ml/min Est GFR ( Amer) ml/min Est GFR (Non-Af Amer) ml/min BUN/Creatinine Ratio (10-20) Glucose (70-99(Fasting)) mg/dl POC Glucose 71 70 81 (70-99) mg/dl Calcium (8.5-10.1) mg/dl SARS-CoV-2, RNA, NAAT (NEGATIVE) 08/06/22 08/07/22 08/07/22 Range/Units 20:16 05:08 06:14 WBC 7.76 (4.8-10.8) K/ul RBC 4.37 L (4.63-6.08) M/uL Hgb 12.7 L (14.0-18.0) g/dl Hct 38.2 L (40.1-51.0) % MCV 87.4 (80.0-100.0) fL MCH 29.1 (25.0-34.0) pg MCHC 33.2 (32.0-36.0) g/dL RDW Std Deviation 39.6 (36.4-46.3) fL RDW Coeff of Ileana 12.4 (11.5-14.5) % Plt Count 130 (130-400) K/uL MPV 12.8 H (9.4-12.4) fL Sodium (136-145) mmol/L Potassium (3.5-5.1) mmol/L Chloride (98-107) mmol/L Carbon Dioxide (21-32) mmol/L Anion Gap (3-11) BUN (6-23) mg/dl Creatinine (0.6-1.4) mg/dl Est Cr Clr Drug Dosing ml/min Est GFR ( Amer) ml/min Est GFR (Non-Af Amer) ml/min BUN/Creatinine Ratio (10-20) Glucose (70-99(Fasting)) mg/dl POC Glucose 98 88 (70-99) mg/dl Calcium (8.5-10.1) mg/dl SARS-CoV-2, RNA, NAAT (NEGATIVE) 08/07/22 08/07/22 08/07/22 Range/Units 06:14 08:00 12:16 WBC (4.8-10.8) K/ul RBC (4.63-6.08) M/uL Hgb (14.0-18.0) g/dl Hct (40.1-51.0) % MCV (80.0-100.0) fL MCH (25.0-34.0) pg MCHC (32.0-36.0) g/dL RDW Std Deviation (36.4-46.3) fL RDW Coeff of Ileana (11.5-14.5) % Plt Count (130-400) K/uL MPV (9.4-12.4) fL Sodium 140 (136-145) mmol/L Potassium 3.9 (3.5-5.1) mmol/L Chloride 108 H (98-107) mmol/L Carbon Dioxide 29 (21-32) mmol/L Anion Gap 3 (3-11) BUN 24 H (6-23) mg/dl Creatinine 1.12 (0.6-1.4) mg/dl Est Cr Clr Drug Dosing 80.6 ml/min Est GFR ( Amer) 77.8 ml/min Est GFR (Non-Af Amer) 67.1 ml/min BUN/Creatinine Ratio 21.4 H (10-20) Glucose 101 H (70-99(Fasting)) mg/dl POC Glucose 106 H 130 H (70-99) mg/dl Calcium 8.4 L (8.5-10.1) mg/dl SARS-CoV-2, RNA, NAAT (NEGATIVE) 08/07/22 08/07/22 08/08/22 Range/Units 17:11 20:48 05:48 WBC 8.69 (4.8-10.8) K/ul RBC 3.90 L (4.63-6.08) M/uL Hgb 11.4 L (14.0-18.0) g/dl Hct 33.9 L (40.1-51.0) % MCV 86.9 (80.0-100.0) fL MCH 29.2 (25.0-34.0) pg MCHC 33.6 (32.0-36.0) g/dL RDW Std Deviation 39.7 (36.4-46.3) fL RDW Coeff of Ileana 12.5 (11.5-14.5) % Plt Count 131 (130-400) K/uL MPV 12.5 H (9.4-12.4) fL Sodium (136-145) mmol/L Potassium (3.5-5.1) mmol/L Chloride (98-107) mmol/L Carbon Dioxide (21-32) mmol/L Anion Gap (3-11) BUN (6-23) mg/dl Creatinine (0.6-1.4) mg/dl Est Cr Clr Drug Dosing ml/min Est GFR ( Amer) ml/min Est GFR (Non-Af Amer) ml/min BUN/Creatinine Ratio (10-20) Glucose (70-99(Fasting)) mg/dl POC Glucose 126 H 119 H (70-99) mg/dl Calcium (8.5-10.1) mg/dl SARS-CoV-2, RNA, NAAT (NEGATIVE) 08/08/22 08/08/22 08/08/22 Range/Units 05:48 08:22 12:21 WBC (4.8-10.8) K/ul RBC (4.63-6.08) M/uL Hgb (14.0-18.0) g/dl Hct (40.1-51.0) % MCV (80.0-100.0) fL MCH (25.0-34.0) pg MCHC (32.0-36.0) g/dL RDW Std Deviation (36.4-46.3) fL RDW Coeff of Ileana (11.5-14.5) % Plt Count (130-400) K/uL MPV (9.4-12.4) fL Sodium 138 (136-145) mmol/L Potassium 4.1 (3.5-5.1) mmol/L Chloride 107 (98-107) mmol/L Carbon Dioxide 28 (21-32) mmol/L Anion Gap 3 (3-11) BUN 25 H (6-23) mg/dl Creatinine 1.44 H D (0.6-1.4) mg/dl Est Cr Clr Drug Dosing 62.7 ml/min Est GFR ( Amer) 57.4 ml/min Est GFR (Non-Af Amer) 49.5 ml/min BUN/Creatinine Ratio 17.4 (10-20) Glucose 115 H (70-99(Fasting)) mg/dl POC Glucose 108 H 116 H (70-99) mg/dl Calcium 8.3 L (8.5-10.1) mg/dl SARS-CoV-2, RNA, NAAT (NEGATIVE) Total Time Total Time Spent Total Time Spent (In Minutes): 20 Discharge Plan Discharge Items Patient Disposition: Home - Home Health Services Reason For Visit: Osteoarthritis Right Knee Discharge Diagnosis: Osteoarthritis right knee Activity: Per Instructions section Weightbearing: Right weightbearing Weightbearing Comment: as tolerated with walker Non-emergency contact: Surgeon Call non-emergency contact if: you have any medication questions, your pain is not controlled, your temperature is above 101.5, your wound has increased redness and your wound has increased drainage Follow-up/Referrals: Ishmael Garcia MD [Surgeon] - (Follow up with Dr. Garcia in 2 weeks from the day of surgery for your first post operative visit.) Kameron Ulloa DO [Primary Care Provider] - Diet: Carb Count or DM1 Addtl Attending Provider Instructions: ACTIVITY RECOMMENDATIONS: SELF CARE INSTRUCTIONS AFTER TOTAL KNEE REPLACEMENT A. You may need to continue a physical therapy program after discharge from the hospital. There are several options available to you. Your doctor will assist you in selecting the best one for you. 1. An out-patient facility 2 to 3 times a week for therapy or home therapy. 2. Continue working on all exercises taught to you in the hospital. Your goals should be to increase bending of your knee to 90 degrees and beyond and to fully straighten your knee. B. You may progress at your own pace from walking with a walker or crutches to a cane; then to no assistive devices. C. Make walking a part of your daily routine. Be up as much as comfortable with rest periods throughout the day. Rest with leg elevation is very important. Use the ice wrap frequently for the first 3-4 weeks. D. There are no restrictions on activities. You may ride in a car, shop, participate in fuel cell designer and all social activities. E. Wear the long elastic stockings (CARMENCITA hose) 20 hours a day for 2 weeks after surgery. They can be removed several times a day for laundering and for a bath. F. You may shower, no tub baths until cleared by your doctor. SPECIAL CARE INSTRUCTIONS: VERY IMPORTANT TO READ AND REVIEW A. There are a few signs you need to watch for after you are home. Call [facility] [place] if you notice any of the followin. Increased severe knee pain. Some pain is expected especially when you exercise. 2. Increased swelling in your leg or knee; pain or swelling of the calf muscle in either lower leg. 3. Any fluid drainage from the incision. 4. Shortness of breath or chest pain. B. Please call [facility] at if you have any concerns or questions about your operation or recovery. The doctor or his nurse will return your call promptly. C. You must take antibiotics before dental work, bladder, bowel or other surgery. Your doctor will provide you with a permanent care to carry describing this precaution. IMPORTANT: * REMEMBER TO TAKE ASPIRIN, 81 MG, TWICE DAILY FOR 4 WEEKS UNLESS OTHERWISE DIRECTED. THIS IS YOUR BLOOD THINNER. * CALL IF INCREASED PAIN, REDNESS, DRAINAGE OR FEVER GREATER THAT 101. * WEAR CARMENCITA HOSE 20 HOURS PER DAY FOR 2 WEEKS. * DUNIA Dressing - This is a large suction dressing covering your incision. This will help pull any excess drainage from the wound and allow your incision to heal properly. You may shower with this if you can keep the unit outside of the shower. If any bleeding or leakage is noted please call your doctor's office. This will remain on your incision for 7 days and then should be removed. This can be done yourself or by the home nursing staff if applicable. The entire unit is disposable once removed. Once removed, keep incision clean and dry. If redness or drainage is noted, please call your surgeon. . FOLLOW UP VISIT: If appointment is not already scheduled: Please call [facility] [place] to make a follow-up appointment for 2 weeks after your surgery at . Stand-Alone Forms: My [facility] [place], Smoking Cessation Medications and DC Order Prescriptions: New aspirin 81 mg Tablet,Delayed Release (Dr/Ec) 81 mg PO BID 30 Days Qty: 60 0RF acetaminophen [Tylenol Extra Strength] 500 mg Tablet 1,000 mg PO Q8 14 Days Qty: 84 0RF docusate sodium 100 mg Capsule 100 mg PO BID 14 Days Qty: 28 0RF oxycodone 5 mg Tablet 5 - 10 mg PO Q4H PRN (Reason: pain) Qty: 36 0RF polyethylene glycol 3350 [Miralax] 17 gram powder in packet 17 g PO DAILY PRN (Reason: constipation) Qty: 5 0RF ondansetron 4 mg tablet,disintegrating 4 mg PO Q6H PRN (Reason: nausea and vomiting) Qty: 12 0RF Continued atorvastatin 20 mg Tablet 20 mg PO HS omeprazole 40 mg Capsule,Delayed Release(Dr/Ec) 40 mg PO QAM insulin aspart U-100 [Novolog U-100 Insulin aspart] 100 unit/mL Solution 1 unit continuous subcutaneous infusion UD losartan 100 mg Tablet 100 mg PO QAM cyanocobalamin (vitamin B-12) [Vitamin B-12] 1,000 mcg Tablet Extended Release 1,000 mcg PO QAM ascorbic acid (vitamin C) [Vitamin C] 500 mg Tablet 500 mg PO QAM cholecalciferol (vitamin D3) [Vitamin D3] 10 mcg (400 unit) Tablet,Chewable 10 mcg PO QAM Discontinued aspirin 81 mg Capsule 81 mg PO QAM Discharge Orders: Discharge Order (Routine); Ordered 08/08/22 Ordered By: Shawn Rios Admission Data Admit Date/Time: 08/06/22 09:51 Attending Provider: Ishmael Garcia Admit Provider: Ishmael Garcia Primary Care Provider: Kameron Ulloa Other Providers: Rahul Smiley [facility],Home Healthcare Other Interventions: Discharge Summary Assessment (RN) Last Done: 08/08/22 13:35
== END 2022-08-08 14:37 | disposition home health service (06) ==
LOC: ASU 04:50 → 3E 04:50